=== PATIENT | male | born 1940 | race Caucasian/White ===

== ENCOUNTER 2018-02-02 12:28 | Outpatient (CLI) | payer OTHER ==
[~2018-02-02 12:28] MED LIST: AMLO10TA PO; FERR325E14 PO; GLYB2.5T1 PO; HYDR1TAB76 PO; METF500T2 PO; METO100T98 PO; OMEP40EC1 PO; SIMV40TA1 PO; WARF2.5T77 PO
== END 2018-02-02 17:48 | disposition home or self-care (01) ==
LOC: MRD 12:28
PROVIDERS: ATTEND Family Medicine
DX: M50.321 Other cervical disc degeneration at C4-C5 level (principal)
CPT/HCPCS: 72050